=== PATIENT | male | born 1980 | race Two or more races ===

== ENCOUNTER 2016-11-10 00:50 | Emergency (ER) | payer OTHER ==
[~2016-11-10] VITALS: Ht 172.7 cm; Wt 94.5 kg
[2016-11-10 01:15] VITALS: Ht 172.7 cm; Wt 94.5 kg
[2016-11-10] MEDS ORDERED: DIPHTH/TET/ACEL PERTUSS (ADULT) 0.5 ML VIAL IM* ONE (02:00)
--- NOTE | 2016-11-10 02:05 | RADRPT ---
PROCEDURE: CT head, without contrast. CLINICAL INDICATION: Head injury. TECHNIQUE: Noncontrast CT examination of the head, with axial, sagittal and coronal reformatted im ages. Automated dose exposure control was employed. CTDI: 44.77 and DLP: 810.25. COMPARISON: None. FINDINGS: No acute hemorrhage. Subarachnoid spaces are substantially preserved and symmetric. Ventricles ar e unremarkable. No mass effect. Pena-white matter distinction is preserved without evident decreased attenuation t o suggest acute or recent infarct. Sinuses and osseous structures are unremarkable. IMPRESSION: No acute process in the head. RPTAT: [facility] Physician Yary Date Time Electronically viewed and signed by Physician Yary on 11/10/2016 02:04 RS/
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
[2016-11-10] MEDS ORDERED: TRAM50TA2 PO (02:23)
[2016-11-10] MEDS ORDERED: CEPH-443 PO (02:23)
[2016-11-10] MEDS ORDERED: ACET500C5 PO (02:23)
== END 2016-11-10 02:51 | disposition home or self-care (01) ==
LOC: FTE 00:50
DX: S01.01XA Laceration without foreign body of scalp, initial encounter (principal); S06.0X1A Concussion with loss of consciousness of 30 minutes or less, initial encounter; F17.210 Nicotine dependence, cigarettes, uncomplicated; Y08.89XA Assault by other specified means, initial encounter; Z23 Encounter for immunization
CPT/HCPCS: 12001; 70450; 90471; 90715; Z7502

== ENCOUNTER 2016-11-16 20:41 | Emergency (ER) | payer OTHER ==
[~2016-11-16] VITALS: Ht 170.2 cm; Wt 93.0 kg
[~2016-11-16 20:41] MED LIST: ACET500C5 PO; CEPH-443 PO; TRAM50TA2 PO
[2016-11-16 20:42] VITALS: Ht 170.2 cm; Wt 93.0 kg
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
== END 2016-11-16 21:19 | disposition home or self-care (01) ==
LOC: FTE 20:41
DX: Z48.02 Encounter for removal of sutures (principal); Z87.891 Personal history of nicotine dependence
CPT/HCPCS: 99281